=== PATIENT | male | born 1975 | race African-American/Black ===

== ENCOUNTER 2021-09-29 10:50 | Outpatient (CLI) | payer OTHER | END 2021-09-29 10:51 | disposition home or self-care (01) | LOC: CSHWCC 10:50 | PROVIDERS: ATTEND Nurse Practitioner Family | DX: I87.2 Venous insufficiency (chronic) (peripheral) (principal); E66.3 Overweight; F31.9 Bipolar disorder, unspecified; G89.4 Chronic pain syndrome; I89.0 Lymphedema, not elsewhere classified; R60.0 Localized edema | CPT/HCPCS: 29581 ==

== ENCOUNTER 2021-10-13 09:45 | Outpatient (CLI) | payer OTHER | END 2021-10-13 09:46 | disposition home or self-care (01) | LOC: CSHWCC 09:45 | PROVIDERS: ATTEND Nurse Practitioner Family | DX: R60.0 Localized edema (principal); G89.4 Chronic pain syndrome; F31.9 Bipolar disorder, unspecified; I87.2 Venous insufficiency (chronic) (peripheral); E66.3 Overweight; I89.0 Lymphedema, not elsewhere classified | CPT/HCPCS: 29581 ==